=== PATIENT | female | born 1970 | race Caucasian/White ===

== ENCOUNTER → 2017-11-20 | Outpatient (CLI) | payer MEDICARE ==
--- NOTE | 2017-11-21 19:42 | ECHOF ---
Referral Reason:R01.1 Cardiac Murmur MEASUREMENTS -------- HEIGHT: 157.5 cm WEIGHT: 104.3 kg BP: 199/95 RVIDd: 3.2 cm (< 3.3) IVSd: 1.1 cm (0.6 - 1.1) LVIDd: 4.8 cm (3.9 - 5.3) LVPWd: 1.0 cm (0.6 - 1.1) IVSs: 1.5 cm LVIDs: 3.5 cm LVPWs: 1.4 cm LA Diam: 3.6 cm (2.7 - 3.8) LAESV Index (A-L): 19.32 ml/m Ao Diam: 3.1 cm (2.0 - 3.7) AV Cusp: 2.3 cm (1.5 - 2.6) MV EXCURSION: 16.399 mm (> 18.000) MV EF SLOPE: 127 mm/s (70 - 150) EPSS: 0.3 cm MV E Magno: 0.97 m/s MV DecT: 188 ms MV A Magno: 0.91 m/s MV E/A Ratio: 1.06 AV maxP.08 mmHg AV meanP.21 mmHg FINDINGS -------- Sinus rhythm. This was a technically good study. The left ventricular size is normal. There is borderline concentric left ventricular hypertrophy. Overall left ventricular systolic function is normal with, an EF between 60 - 65 %. The right ventricle is normal in size. Normal LA size by volume 22+/-6 ml/m2. The right atrium is normal in size. The aortic valve is trileaflet and appears structurally normal. Peak/mean gradient across the Aorti c Valve is 14.08mmHg / 6.21mmHg. The mitral valve is normal. The tricuspid valve appears structurally normal. There is no pulmonic regurgitation present. The aortic root size is normal. Normal inferior vena cava with normal inspiratory collapse consistent with estimated right atrial pre ssure of 5 mmHg. There is no pericardial effusion. CONCLUSIONS -------- 1. Sinus rhythm. 2. This was a technically good study. 3. The left ventricular size is normal. 4. There is borderline concentric left ventricular hypertrophy. 5. Overall left ventricular systolic function is normal with, an EF between 60 - 65 %. 6. The right ventricle is normal in size. 7. Normal LA size by volume 22+/-6 ml/m2. 8. The right atrium is normal in size. 9. The aortic valve is trileaflet and appears structurally normal. 10. Peak/mean gradient across the Aortic Valve is 14.08mmHg / 6.21mmHg. 11. The mitral valve is normal. 12. The tricuspid valve appears structurally normal. 13. There is no pulmonic regurgitation present. 14. The aortic root size is normal. 15. Normal inferior vena cava with normal inspiratory collapse consistent with estimated right atrial pressure of 5 mmHg. 16. There is no pericardial effusion. METAL PLATER: Lacey Argueta RDCS
== END | disposition home or self-care (01) ==
LOC: RADECHMAIN 14:47
PROVIDERS: ATTEND Family Medicine
DX: I51.7 Cardiomegaly (principal); R01.1 Cardiac murmur, unspecified
CPT/HCPCS: 93306

== ENCOUNTER 2018-07-15 07:44 | Day surgery (SDC) | payer MEDICARE ==
[2018-07-13 15:18] VITALS: BMI 45.7
[~2018-07-15 07:44] MED LIST: DEXAMETHASONE SOD PHOSPHATE 10 MG/ML 1 ML VIAL IV ONE; LACTATED RINGERS 1,000 ML IV SCH; ONDANSETRON 4 MG/2 ML VIAL IVP ONE; Pre Op ABX Message 1 EACH MISC MISCELLANE ONE; SCOPOLAMINE 1.5MG/72HR PATCH TRANSDERM ONE
--- NOTE | 2018-07-15 08:18 | P.HPOR ---
History of Present Illness H&P Date: 07/15/18 The patient is a very pleasant 48-year-old female who previously underwent open reduction and internal fixation of an ankle fracture by one of my partners. She has gone on to develop symptomatically hardware and anterior ankle pain. We discussed continued nonsurgical treatment with bracing, anti-inflammatory pain medications, and occasional cortisone injections versus surgery with a hardware removal and ankle arthroscopy. The patient elected to go forward with surgery. Past Medical History Past Medical History: Asthma, GERD/Reflux, Hyperlipidemia Additional Past Medical History / Comment(s): MIGRAINES, BRONCHIAL ASTHMA, IBS WITH D., PAIN LEFT ANKLE- STATES SHE HAS SCREW FROM PREVIOUS SURGERY. History of Any Multi-Drug Resistant Organisms: None Reported Past Surgical History: Cholecystectomy, Orthopedic Surgery Additional Past Surgical History / Comment(s): SURGERY LEFT ANKLE WITH HARDWARE AND THEN HARDWARE WAS REMOVED EXCEPT FOR 1 SCREW., SINUS SURGERY Past Anesthesia/Blood Transfusion Reactions: No Reported Reaction, Motion Sickness Additional Past Anesthesia/Blood Transfusion Reaction / Comment(s): mother-ponv Past Psychological History: Anxiety, Bipolar, Depression, Panic Disorder Smoking Status: Former smoker Past Alcohol Use History: Rare Additional Past Alcohol Use History / Comment(s): QUIT SMOKING 7-8 YEARS AGO ( 2010), SMOKED 1-2 PPD. STARTED SMOKING TEENAGER. Past Drug Use History: None Reported - Past Family History Father Family Medical History: Cancer Additional Family Medical History / Comment(s): prostate Sister(s) Family Medical History: Cancer Additional Family Medical History / Comment(s): (2) half sisters had lung cancer Brother(s) Family Medical History: Cancer Additional Family Medical History / Comment(s): thyroid cancer Medications and Allergies Home Medications Medication Instructions Recorded Confirmed Type Aspirin 81 mg PO DAILY 06/12/15 07/13/18 History Gabapentin [Neurontin] 2 tab PO BID 06/12/15 07/13/18 History Rosuvastatin [Crestor] 10 mg PO HS 06/12/15 07/13/18 History buPROPion HCL [Wellbutrin XL] 300 mg PO DAILY 06/12/15 07/13/18 History ALPRAZolam [Xanax] 0.5 mg PO TID PRN 07/13/18 07/13/18 History ARIPiprazole [Abilify] 20 mg PO DAILY 07/13/18 07/13/18 History Albuterol Inhaler [Ventolin Hfa 1 - 2 puff INHALATION QID 07/13/18 07/13/18 History Inhaler] Black Cohosh 540 mg PO BID 07/13/18 07/13/18 History Cholecalciferol [Vitamin D3] 5,000 unit PO DAILY 07/13/18 07/13/18 History Dicyclomine [Bentyl] 20 mg PO QID 07/13/18 07/13/18 History Diphenoxylate HCl/Atropine 2 tab PO QID 07/13/18 07/13/18 History [Lomotil 2.5-0.025 mg Tablet] Esomeprazole Magnesium [NexIUM] 40 mg PO HS 07/13/18 07/13/18 History Krill/[place]-3/Dha/Epa/Lipids 1 each PO DAILY 07/13/18 07/13/18 History [Krill Oil 350 mg Softgel] Sucralfate [Carafate] 1 gm PO ACHS 07/13/18 07/13/18 History lamoTRIgine 200 mg PO DAILY 07/13/18 07/13/18 History traZODone HCL 100 mg PO HS MDD 200mg 07/13/18 07/13/18 History Allergies Allergy/AdvReac Type Severity Reaction Status Date / Time No Known Allergies Allergy Verified 07/13/18 14:24 Physical Examination The patient is in no apparent distress and is alert and oriented. She demonstrates nonlabored breathing symmetric chest expansion. A focused examination was conducted on the affected ankle. There is a healed stab incision over the anterolateral aspect of the ankle. There is no surrounding erythema or warmth. There is mild tenderness over the anterior aspect of the ankle. There is pain with passive dorsiflexion of the ankle. Motor and sensory function are intact. Assessment and Plan (1) Fixation hardware in leg Current Visit: Yes Status: Acute Code(s): Z96.7 - PRESENCE OF OTHER BONE AND TENDON IMPLANTS SNOMED Code(s): 396258451 Plan: I lengthy discussion with the patient on treatment options including continued nonsurgical care with activity modification, bracing, anti-inflammatory pain medications and occasional injections versus surgery with a hardware removal and ankle arthroscopy. Since the patient is failed over 1 year of nonsurgical treatment she has requested to go forward with surgery. My proposed surgery was to remove the hardware and perform an ankle arthroscopy. The patient understands the potential for continued symptoms due to diffuse arthritis. She also understands the potential for worsening pain, infection, delayed wound healing, damage to local sensory nerves, EVT, PE, and possibly generalized to satisfaction with surgery. She provided her verbal and written consent to go forward with surgery. Time with Patient: Less than 30
[2018-07-15 08:51] VITALS: TEMP 97.5
[2018-07-15] MEDS ORDERED: LIDOCAINE 1% 20 ML VIAL (10MG/ML) FOR IV START INTRADERMA ONE (09:09)
[2018-07-15] MEDS ORDERED: PROPOFOL 10 MG/ML 20 ML VIAL IV ONE (11:39)
[2018-07-15] MEDS ORDERED: MIDAZOLAM 2 MG/2 ML VIAL ONE (11:39)
[2018-07-15] MEDS ORDERED: LIDOCAINE 1% INJ 10MG/ML (20 ML MDV) ONE (11:39)
[2018-07-15] MEDS ORDERED: fentaNYL (PF) 50 MCG/ML 2 ML AMP ONE (11:39)
[2018-07-15] MEDS ORDERED: SUCCINYLCHOLINE CHLORIDE 100 MG/5 ML SYR IV ONE (11:39)
[2018-07-15] MEDS ORDERED: HYDROmorphone 1 MG/ML 1 ML SYRINGE IVP PRN (11:47)
[2018-07-15] MEDS ORDERED: HYDROcodone/APAP 5-325MG 1 EACH TAB PO PRN ×2 (11:47)
[2018-07-15] MEDS ORDERED: LACTATED RINGERS 1,000 ML IV SCH (12:00)
[2018-07-15] MEDS ORDERED: SODIUM CHLORIDE 0.9% 50 ML with ceFAZolin 2,000 MG IV ONE ×2 (12:05)
[2018-07-15] MEDS ORDERED: ROPIVACAINE 5 MG/ML 30 ML VIAL MISCELLANE ONE ×2 (12:22)
[2018-07-15] MEDS ORDERED: LACTATED RINGERS 1,000 ML IV ONE (13:07)
--- NOTE | 2018-07-15 13:21 | XR ---
EXAMINATION TYPE: XR ankle limited LT DATE OF EXAM: 07/15/2018 COMPARISON: NONE HISTORY: Hardware removal TECHNIQUE: 2 views submitted FINDINGS: No metallic hardware identified on the T2 images submitted. Resolution limited by intraoper ative image. IMPRESSION: Intraoperative hardware removal.
--- NOTE | 2018-07-15 13:24 | FL ---
Fluoroscopy History: HARDWARE REMOVAL LT FOOT. 7 SECS FL TIME 2 IMAGES.
--- NOTE | 2018-07-15 13:39 | P.OP ---
Date of Procedure: 07/15/18 Preoperative Diagnosis: 1. Symptomatically hardware left ankle 2. Anterior ankle impingement, left ankle 3. Posttraumatic ankle arthritis, left ankle Postoperative Diagnosis: Same Procedure(s) Performed: 1. Left ankle arthroscopy with extensive debridement and arthroscopic cheilectomy 2. Removal of hardware, deep left ankle Anesthesia: BRITTNEY Surgeon: Be Galloway Fine Dining Server #1: Abdi Travis Estimated Blood Loss (ml): 5 IV fluids (ml): 500 Pathology: none sent Condition: stable Disposition: PACU Indications for Procedure: The patient is very pleasant previous a healthy 48 year old female who sustained a left ankle fracture in the remote past that was fixed by Dr. Garrison. She healed her fracture but has gone on to develop diffuse ankle pain. She was initially treated nonsurgically with an ankle brace and cortisone injection. She transiently responded following her cortisone injection. She came back to see me recently and requested surgical intervention. We discussed removing the hardware from the ankle and performing an arthroscopy. The patient agreed to go forward with this. We discussed the potential risks and complications of surgery including but not limited to risk of anesthesia, superficial infection, deep infection, delayed wound healing, damage to local sensory nerves, draining fistula. Arthroscopy portals, worsening pain, ongoing pain, inability to regain preinjury level of function, DVT, PE, need for further surgery, and possibly loss of life or limb. The patient voiced her understanding of the potential for continued pain especially if she has posterior medical arthritis. She understands that in many cases an arthroscopy is a diagnostic procedure, but hopefully she will get some therapeutic relief. She provided her verbal and written consent to go forward with surgery. Description of Procedure: The patient is in proper holding the correct left ankle was marked with my initials. I reviewed the consent form with the patient and her mom. All of her questions were answered. The patient was then brought back to the operating room by anesthesia. She was positioned on the OR table where a general anesthetic and preoperative antibiotics were administered. A tourniquet was applied the proximal aspect the left thigh. A well leg alcala was placed under the leg to facilitate traction with gravity for arthroscopy. The contralateral leg was secured to the table with foam and tape. The left leg was then prepped and draped in the standard sterile fashion. A timeout was performed identifying the correct patient, operative extremity, and procedure. The leg was then elevated, exsanguinated with an Esmarch bandage, and the tourniquet was inflated to 250 mmHg. I began by marking out standard anteromedial and anterolateral arthroscopy portals with a skin marker. An 18-gauge spinal needle was used through the medial portal to insufflate the joint with 10 mL's of sterile saline. An 11 blade scalpel was then used to create a stab incision through the skin only and a mosquito hemostat was used to bluntly dissect down to the ankle joint. A blunt probe and obturator were inserted into the joint followed by a 2.7 mm 30 arthroscope. The anterolateral portal was created with a stab incision followed by blunt dissection down to the joint. A probe was placed through the anterolateral portal. On inspection the joint there was diffuse synovitis in the anterior recess of the ankle. The probe was removed and an arthroscopic shaver was introduced and an extensive synovectomy was performed along a recess in the anterior aspect of the ankle for visualization. The shaver was then removed and the probe was reinserted into the ankle joint. A diagnostic arthroscopy was then performed. There was mild fraying diffusely throughout the talar dome but no william osteochondral lesions. The cartilage was largely intact and the visualized portion of the tibial plafond. There was synovitis in the medial and lateral gutter of the ankle but no loose bodies or areas of impingement. There was an osteophyte off of the anterior central aspect of the tibia. An arthroscopic bur was used to shave the osteophyte. The ankle was then brought through a range of motion and there did not appear to be any areas of impingement. The arthroscope and shaver were removed and the portals were closed with 3-0 nylon. A stab incision was then made over the scar from her screw. Dissection was carried down bluntly to the screw and a K wire was placed through the cannulated screw. A large fragment cannulated screwdriver was placed over the K wire but the screw was stripped. Dissection was carried down to the screw and inspection screw head was moderately stripped. I was able to carefully get the screw started with a screwdriver and then used a pliers to remove the screw by hand. Final fluoroscopic images were taken. The wound was copiously irrigated and closed with a 3-0 nylon. A sterile dressing consisting of Adaptic , 4 x 4, and web rolls applied. The tourniquet was let down. An Sravan wrap was placed over the leg. The drapes were removed, the patient was awoken from her anesthetic, and she was transferred to PACU without the procedure well.
[2018-07-15 13:48] VITALS: RESP 16
[2018-07-15] MEDS: HYDROmorphone 0.5 MG/0.5 ML SYRINGE IVP PRN ×2 (13:55→14:09)
[2018-07-15 15:45] VITALS: BP 120/70; PULSE 80
== END 2018-07-15 16:09 | disposition home or self-care (01) ==
LOC: OR 07:44
PROVIDERS: ATTEND Orthopaedic Surgery
DX: T84.84XA Pain due to internal orthopedic prosthetic devices, implants and grafts, initial encounter (principal); M19.172 Post-traumatic osteoarthritis, left ankle and foot; S82.892S Other fracture of left lower leg, sequela; X58.XXXS Exposure to other specified factors, sequela; M25.872 Other specified joint disorders, left ankle and foot; M65.872 Other synovitis and tenosynovitis, left ankle and foot; M25.772 Osteophyte, left ankle; M76.822 Posterior tibial tendinitis, left leg; M72.2 Plantar fascial fibromatosis; K21.9 Gastro-esophageal reflux disease without esophagitis; K58.0 Irritable bowel syndrome with diarrhea; J45.20 Mild intermittent asthma, uncomplicated; E78.5 Hyperlipidemia, unspecified; L98.9 Disorder of the skin and subcutaneous tissue, unspecified; F31.9 Bipolar disorder, unspecified; F41.1 Generalized anxiety disorder; F41.0 Panic disorder [episodic paroxysmal anxiety]; G43.909 Migraine, unspecified, not intractable, without status migrainosus; R63.4 Abnormal weight loss; E66.9 Obesity, unspecified; Z68.42 Body mass index [BMI] 45.0-49.9, adult; Z79.82 Long term (current) use of aspirin; Z79.899 Other long term (current) drug therapy; Z79.891 Long term (current) use of opiate analgesic; Z87.891 Personal history of nicotine dependence; Z90.49 Acquired absence of other specified parts of digestive tract
CPT/HCPCS: 73600; 29898; 20680; J2250; J1100; J2405; J2001; J3010; J0690; J2795; J0330; J2704; J1170

== ENCOUNTER 2019-05-28 10:11 | Day surgery (SDC) | payer MEDICARE ==
[2019-05-27 09:14] VITALS: BMI 45.7
[~2019-05-28 10:11] MED LIST changes: +LIDOCAINE 1% 20 ML VIAL (10MG/ML) FOR IV START INTRADERMA PRN; -ONDANSETRON 4 MG/2 ML VIAL IVP ONE; -Pre Op ABX Message 1 EACH MISC MISCELLANE ONE
[2019-05-28 10:23] VITALS: TEMP 98.2
[2019-05-28] MEDS ORDERED: KETAMINE 10 MG/ML 20 ML VIAL ONE (10:58)
[2019-05-28] MEDS ORDERED: MIDAZOLAM 2 MG/2 ML VIAL ONE (10:58)
[2019-05-28] MEDS ORDERED: LIDOCAINE 1% INJ 10MG/ML (20 ML MDV) ONE (10:58)
[2019-05-28] MEDS ORDERED: PROPOFOL 10 MG/ML 20 ML VIAL IV ONE (10:58)
[2019-05-28] MEDS ORDERED: GLYCOPYRROLATE 0.2 MG/ML 2 ML VIAL ONE (10:58)
--- NOTE | 2019-05-28 11:27 | P.PCN ---
Date of Procedure: 05/28/19 Procedure(s) Performed: BRIEF HISTORY: Patient is a 49-year-old, pleasant, white female, scheduled for an upper endoscopy as a part of evaluation of intermittent dysphagia to solids for the last few months duration. She also has long-standing history of GERD and has been on Nexium 40 mg daily for several years. Because of the dysphagia to solids she is scheduled for an upper endoscopy to evaluate further.. PROCEDURE PERFORMED: Esophagogastroduodenoscopy with biopsy. PREOPERATIVE DIAGNOSIS: Long-standing history of GERD/intermittent dysphagia to solids. IV sedation per anesthesia. PROCEDURE: After informed consent was obtained, the patient was brought into the endoscopy unit. IV sedation was administered by Anesthesia under continuous monitoring. Initially the Olympus GIF-140 video endoscope was inserted into the mouth. Esophagus intubated without any difficulty. It was gradually advanced into the stomach and duodenum and carefully examined. The bulb and the second part of the duodenum appeared normal. The scope at this time was withdrawn to the stomach, adequately insufflated with air, and upon careful examination, mucosa of the antrum, had antral gastritis and biopsies were done from this area. The body, cardia and the fundus appeared normal. The scope was then withdrawn into the esophagus. The GE junction was located at 39 cm from the incisors. The esophagus appeared normal. There were no erosions or ulcerations seen . There was no evidence of esophageal stricture. Multiple biopsies were done from the mid and distal esophagus to rule out eosinophilic esophagitis and the patient tolerated the procedure well. IMPRESSION: 1. No evidence of esophagitis or esophageal stricture. 2. Mild antral gastritis. RECOMMENDATIONS: The findings of this examination were discussed with the patient as well as her family. She was advised to continue with Nexium 40 mg daily and follow antireflux measures. She will follow with the biopsy results..
[2019-05-28 11:30] VITALS: BP 108/64; PULSE 89; RESP 16
== END 2019-05-28 11:42 | disposition home or self-care (01) ==
LOC: ORWHC2ENDO 10:11
PROVIDERS: ATTEND Internal Medicine Gastroenterology
DX: K29.50 Unspecified chronic gastritis without bleeding (principal); K21.9 Gastro-esophageal reflux disease without esophagitis; E78.5 Hyperlipidemia, unspecified; J45.909 Unspecified asthma, uncomplicated; Z87.891 Personal history of nicotine dependence; F41.9 Anxiety disorder, unspecified; G43.909 Migraine, unspecified, not intractable, without status migrainosus; F31.9 Bipolar disorder, unspecified; Z79.82 Long term (current) use of aspirin; Z79.899 Other long term (current) drug therapy; K58.9 Irritable bowel syndrome, unspecified
CPT/HCPCS: 88305; 43239; J2250; J2001; J2704

== ENCOUNTER → 2019-10-05 | Outpatient (CLI) | payer MEDICARE ==
--- NOTE | 2019-10-05 08:44 | US ---
EXAMINATION TYPE: US abdomen complete DATE OF EXAM: 10/05/2019 COMPARISON: US 2009 CLINICAL HISTORY: R10.9 ABDOMINAL PAIN. Pt states abnormal LFT's, GB removed EXAM MEASUREMENTS: Liver Length: 16.9 cm CBD: 1.2 cm Spleen: 11.7 cm Right Kidney: 11.0 x 5.0 x 5.1 cm Left Kidney: 12.7 x 5.3 x 4.5 cm Pancreas: wnl, tail obscured by overlying bowel gas Liver: Heterogeneous with possible fatty sparing near jessica Gallbladder: Surgically absent Evidence for sonographic Fuller's sign: No CBD: Dilated for post bolivar Spleen: wnl Right Kidney: Lobulated contour Left Kidney: Column of Osito Upper IVC: wnl Abd Aorta: wnl The intrahepatic portion of the IVC and proximal abdominal aorta are within normal limits. There is no evidence of cholelithiasis. Common bile duct is unremarkable. The visualized portions of the edward creas are homogenous. The spleen is unremarkable. Kidneys are symmetric and free of hydronephrosis. No renal lesions are seen. IMPRESSION: 1. Mild heterogeneity of the hepatic parenchyma most commonly related to hepatic steatosis. Focal are a of hypoechogenicity. Geographic is seen near the jessica hepatis, a typical location for focal fatty sparing. 2. Common bile duct size is dilated for postcholecystectomy status. Distal stricture is possible as t here is tapering of the pancreatic head or obstructing stone. MRCP could be performed for further woo luation.
== END | disposition home or self-care (01) ==
LOC: RADUSWWP 07:27
PROVIDERS: ATTEND Family Medicine
DX: R93.2 Abnormal findings on diagnostic imaging of liver and biliary tract (principal); Z90.49 Acquired absence of other specified parts of digestive tract
CPT/HCPCS: 76700

== ENCOUNTER → 2019-10-29 | Outpatient (CLI) | payer MEDICARE ==
--- NOTE | 2019-11-01 13:07 | MM ---
Reason for exam: screening (asymptomatic). Last mammogram was performed 11 years and 8 months ago. History: Patient is postmenopausal and is nulliparous. Family history of breast cancer in aunt. Physical Findings: A clinical breast exam by your physician is recommended on an annual basis and results should be correlated with mammographic findings. MG 3D Screening Mammo W/Cad Bilateral CC and MLO view(s) were taken. Prior study comparison: March 09, 2008, bilateral digital screening mammogram. The breast tissue is heterogeneously dense. This may lower the sensitivity of mammography. There is no discrete abnormality. No significant changes when compared with prior studies. ASSESSMENT: Negative, BI-RAD 1 RECOMMENDATION: Routine screening mammogram of both breasts in 1 year.
== END | disposition home or self-care (01) ==
LOC: RADMAMWWP 14:37
PROVIDERS: ATTEND Family Medicine
DX: Z12.31 Encounter for screening mammogram for malignant neoplasm of breast (principal)
CPT/HCPCS: 77063; 77067

== ENCOUNTER → 2020-11-17 | Outpatient (CLI) | payer MEDICARE ==
--- NOTE | 2020-11-17 11:07 | US ---
EXAMINATION TYPE: US abdomen comp/pelvis limited DATE OF EXAM: 11/17/2020 COMPARISON: 10/05/2019 CLINICAL HISTORY: 50-year-old female R31.29 Micro hematuria. Microscopic hematuria x couple months, h istory of cholecystectomy Technique: Multiple sonographic images of the abdomen and bladder are obtained. FINDINGS: EXAM MEASUREMENTS: Liver Length: 20.9 cm CBD: 1.3 cm Spleen: 10.9 cm Right Kidney: 11.5 x 5.4 x 5.0 cm Left Kidney: 12.6 x 5.2 x 5.1 cm Recruiting Manager notes:Difficult and limited study due to patient body habitus Pancreas: Only portions of the pancreatic head and neck are seen. Remainder suboptimally visualized due to shadowing from bowel gas. Liver: Enlarged, echogenic, and attenuating with some focal fatty sparing at the portahepatis. Gallbladder: surgically absent CBD: dilated Spleen: wnl Kidneys: No hydronephrosis. Upper IVC: wnl Abd Aorta: wnl Bladder: No gross abnormality. Bilateral Jets Seen yes IMPRESSION: 1. No hydronephrosis. Both ureteral jets are visualized. No gross sonographic abnormality of the blad mel. 2. Dilated bile duct at 1.3 cm may be secondary to chronic postcholecystectomy status. Correlate for normal alkaline phosphatase and bilirubin levels. 3. Hepatomegaly (20.9 cm) with at least moderate hepatic steatosis.
== END | disposition home or self-care (01) ==
LOC: RADUSWWP 08:47
PROVIDERS: ATTEND Family Medicine
DX: K83.8 Other specified diseases of biliary tract (principal); K76.0 Fatty (change of) liver, not elsewhere classified; R16.0 Hepatomegaly, not elsewhere classified
CPT/HCPCS: 76700; 76857

== ENCOUNTER → 2021-01-04 | Outpatient (CLI) | payer MEDICARE ==
--- NOTE | 2021-01-05 09:23 | MM ---
Reason for exam: screening (asymptomatic). Last mammogram was performed 1 year and 2 months ago. History: Patient is postmenopausal and is nulliparous. Family history of breast cancer in aunt. Physical Findings: A clinical breast exam by your physician is recommended on an annual basis and results should be correlated with mammographic findings. MG 3D Screening Mammo W/Cad Bilateral CC and MLO view(s) were taken. Prior study comparison: October 29, 2019, bilateral MG 3d screening mammo w/cad. March 09, 2008, bilateral digital screening mammogram. There are scattered fibroglandular densities. Stable benign calcifications. There is no discrete abnormality. No significant changes when compared with prior studies. ASSESSMENT: Benign, BI-RAD 2 RECOMMENDATION: Routine screening mammogram of both breasts in 1 year.
== END | disposition home or self-care (01) ==
LOC: RADMAMWWP 13:32
PROVIDERS: ATTEND Family Medicine
DX: Z12.31 Encounter for screening mammogram for malignant neoplasm of breast (principal); Z78.0 Asymptomatic menopausal state; Z80.3 Family history of malignant neoplasm of breast
CPT/HCPCS: 77063; 77067

== ENCOUNTER 2021-01-19 07:17 | Day surgery (SDC) | payer MEDICARE, OTHER ==
[2021-01-16 11:41] VITALS: BMI 48.4
[~2021-01-19 07:17] MED LIST changes: -DEXAMETHASONE SOD PHOSPHATE 10 MG/ML 1 ML VIAL IV ONE; +DEXAMETHASONE SOD PHOSPHATE 4 MG/ML 1 ML VIAL IV ONE; +HYDROmorphone 0.5 MG/0.5 ML SYRINGE IVP PRN; +LIDOCAINE 1% (10MG/ML) FOR IV START INTRADERMA PRN; -LIDOCAINE 1% 20 ML VIAL (10MG/ML) FOR IV START INTRADERMA PRN; +MIDAZOLAM 2 MG/2 ML VIAL IV PRN; +ONDANSETRON 4 MG/2 ML VIAL IVP ONE; -SCOPOLAMINE 1.5MG/72HR PATCH TRANSDERM ONE
[2021-01-19 07:43] VITALS: TEMP 97.4
[2021-01-19] MEDS ORDERED: SCOPOLAMINE 1.5MG/72HR PATCH TRANSDERM ONE (08:01)
[2021-01-19 08:04] LABS: Glucose,Whole Blood 112 mg/dL (75-99)
[2021-01-19] MEDS ORDERED: MIDAZOLAM 2 MG/2 ML VIAL IVP ONE (08:06)
--- NOTE | 2021-01-19 09:28 | P.OP ---
Date of Procedure: 01/19/21 Preoperative Diagnosis: Chronic right ankle instability Postoperative Diagnosis: Same Procedure(s) Performed: Secondary repair of right lateral ankle ligaments Implants: 1 Arthrex internal brace, 2 Arthrex fiber Agapito anchors Anesthesia: BRITTNEY Surgeon: Aldair Aleman Estimated Blood Loss (ml): 5 Pathology: none sent Condition: stable Disposition: PACU Indications for Procedure: Chronic right ankle instability with pain Description of Procedure: Dry to the patient being brought to the operating room anesthesia administered a popliteal nerve block of the right lower extremity. The patient was then brought into the operative room placed on table supine position. Timeout was taken to confirm correct patient identifiers correct site of surgery and correct procedure. When the room was in agreement the patient was then intubated placed under general anesthetic. A wedge was placed underneath the right hip to internally rotate the right leg. A tourniquet was placed on the right midcalf keeping 3-4 inches distal to the fibular neck. Then the right leg was prepped and draped usual manner. Attention was directed over the anterior lateral ankle were curved incision was made just anterior to lateral malleolus. This deepened down through the subcutaneous tissue down to level the joint capsule careful to identify, avoid, and retract any neurovascular structures and cauterize any bleeding vessels. The capsule was incised off the anterior surface of the lateral malleolus and reflected anteriorly. Hakan was used to remove the cortical bone off the anterior surface the lateral malleolus. All roughened edges were smoothed with a rasp. With the ankle held in neutral position the capsules palpated over the lateral surface of the talus just anterior to the joint surface and at the junction of the neck. A small stab incision was made through the capsule and 3.4 mm drill bit was used to create the drill hole in the talus utilizing described technique. The hole was tapped and then the anchor inserted and advanced to proper depth. The hand picker was removed and the suture set aside. The same drill bit was then used to create the drill hole for the second portion of the internal brace in the lateral malleolus. Drill holes for the fiber Agapito anchors were made in the lateral malleolus one inferior one superior to 3.4 mm drill hole. The fiber Agapito anchors were inserted and impacted to proper depth. the hand picker drill guides were removed and tension placed on the suture for lock the knot in place. The wound is irrigated with antibiotic saline. The fiber Agapito suture was then used to sew the distal capsular and ligament structures and a tightened fashion back to the anterior surface lateral malleolus all the ankle maxillae dorsiflexed and everted. Same sutures then used to oversew the periosteal flap pants over vest fashion on the repair site. The 2 arms of the internal brace suture were then placed through the 3.5 mm anchor which was then aligned with the drill hole in the lateral malleolus. P jody tensioning techniques were utilized to then the anchor was advanced locking the suture in place. Ankle was tested for range of motion and stability, where anterior drawer and inversion stress are negative. The wound is irrigated with antibiotic saline. Subcu closure done for Monocryl. Skin closure done with 40 stratified effects in a running subarticular manner. Dermabond glue and Steri-Strips are applied then a jumpstart dressing and a dry sterile dressings applied the right ankle. Tourniquet was released capillary refill return to all digits on the right foot. Patient placed in a below-knee fracture boot ankle neutral position. Anesthesia was reversed and the patient was taken recovery with vital signs stable.
[2021-01-19] MEDS ORDERED: LACTATED RINGERS 1,000 ML IV ONE (10:09)
[2021-01-19] MEDS ORDERED: HYDROcodone/APAP 7.5-325MG 1 EACH TAB ONE (10:44)
[2021-01-19] MEDS ORDERED: HYDROcodone/APAP 7.5-325MG 1 EACH TAB PO ONE (10:45)
[2021-01-19 11:35] VITALS: BP 137/78; PULSE 78; RESP 18
--- NOTE | 2021-01-21 18:42 | P.ANPRN ---
Procedure Note - Anesthesia - Nerve Block Performed Right Popliteal Single Time Out Performed: Yes Date of Procedure: 01/19/21 Procedure Start Time: 08:05 Procedure Stop Time: 08:13 Location of Patient: PreOp Indication: Acute Post-Operative Pain, Requested by Surgeon Sedation Type: Sedate with meaningful contact maintained Preparation: Sterile Prep Position: Left Lateral Needle Types: Pajunk Needle Gauge: 21 Ultrasound used to visualize needle placement: Yes Ultrasound used to observe medication spread: Yes Blood Aspirated: No Pain Paresthesia on Injection Noted: No Resistance on Injection: Normal Image Stored and Saved: Yes Events: Uneventful and Well Tolerated (Ropivacaine 0.5% 30 mL plus dexamethasone 4 mg)
== END 2021-01-19 11:36 | disposition home or self-care (01) ==
LOC: OR 07:17
PROVIDERS: ATTEND Podiatrist
DX: M25.371 Other instability, right ankle (principal); E78.5 Hyperlipidemia, unspecified; F32.9 Major depressive disorder, single episode, unspecified; I10 Essential (primary) hypertension; J45.909 Unspecified asthma, uncomplicated; G47.33 Obstructive sleep apnea (adult) (pediatric); R45.0 Nervousness; K21.9 Gastro-esophageal reflux disease without esophagitis; Z98.890 Other specified postprocedural states; Z98.42 Cataract extraction status, left eye; Z98.41 Cataract extraction status, right eye; Z97.3 Presence of spectacles and contact lenses; Z82.49 Family history of ischemic heart disease and other diseases of the circulatory system; Z87.891 Personal history of nicotine dependence; Z90.49 Acquired absence of other specified parts of digestive tract
CPT/HCPCS: 64445; 76942; 27698; C1713 ×2; J2250; J1100; J0690; J2405

== ENCOUNTER 2021-07-24 10:13 | Outpatient (CLI) | payer MEDICARE, OTHER ==
[~2021-07-24 10:13] MED LIST changes: +BAMLANIVIMAB (EUA) 700 MG, ETESEVIMAB (EUA) 1,400 MG in SODIUM CHLORIDE 0.9% 50 ML IVPB ONE; -DEXAMETHASONE SOD PHOSPHATE 4 MG/ML 1 ML VIAL IV ONE; -HYDROmorphone 0.5 MG/0.5 ML SYRINGE IVP PRN; -LACTATED RINGERS 1,000 ML IV SCH; -LIDOCAINE 1% (10MG/ML) FOR IV START INTRADERMA PRN; -MIDAZOLAM 2 MG/2 ML VIAL IV PRN; -ONDANSETRON 4 MG/2 ML VIAL IVP ONE; +SODIUM CHLORIDE 0.9% 50 ML IVPB ONE; +SODIUM CHLORIDE 0.9% 500 ML 500 ML in EMPTY BAG 1 BAG IV PRN
[2021-07-24 11:31] VITALS: BP 133/81; PULSE 95; RESP 22; TEMP 100.2
== END 2021-07-24 12:20 ==
LOC: PROCWHC3 10:13
PROVIDERS: ATTEND Family Medicine
DX: U07.1 COVID-19 (principal); E66.9 Obesity, unspecified; Z68.42 Body mass index [BMI] 45.0-49.9, adult; Z87.891 Personal history of nicotine dependence
CPT/HCPCS: 96360; J3490; M0243

== ENCOUNTER → 2021-09-20 | Outpatient (CLI) | payer MEDICARE ==
--- NOTE | 2021-09-22 12:59 | ECHOF ---
Referral Reason:U07.1 covid 19 MEASUREMENTS -------- HEIGHT: 157.5 cm WEIGHT: 120.2 kg BP: IVSd: 0.9 cm (0.6 - 1.1) LVIDd: 4.6 cm (3.9 - 5.3) LVPWd: 1.2 cm (0.6 - 1.1) EDV(Teich): 95 ml IVSs: 1.8 cm LVIDs: 3.4 cm LVPWs: 1.4 cm %IVS Thck: 100 % ESV(Teich): 47 ml EF(Teich): 51 % %FS: 26 % SV(Teich): 48 ml RVIDd: 2.8 cm (< 3.3) IVC: 14.80 mm LALs A4C: 4.6 cm LAAs A4C: 15.9 cm LAESV A-L A4C: 47 ml LAESV MOD A4C: 45 ml LALs A2C: 4.6 cm LAAs A2C: 15.3 cm LAESV A-L A2C: 43 ml LAESV MOD A2C: 42 ml LAESV(A-L): 46 ml LAESV Index (A-L): 21.07 ml/m MV E Magno: 0.80 m/s MV DecT: 197 ms MV Dec Goodhue: 4.1 m/s MV A Magno: 0.94 m/s MV E/A Ratio: 0.85 MV PHT: 57 ms MR Vmax: 1.47 m/s MR maxP.59 mmHg AV Vmax: 1.47 m/s AV maxP.59 mmHg TR Vmax: 1.45 m/s TR maxP.38 mmHg RAP: 5.00 mmHg RVSP: 13.38 mmHg FINDINGS -------- This was a technically good study. The left ventricular size is normal. Left ventricular wall thickness is normal. Overall left vent ricular systolic function is normal with, an EF between 55 - 60 %. The diastolic filling pattern is normal for the age of the patient 12.92. The right ventricle is normal in size. The left atrial size is normal. Normal LA size by volume 22+/-6 ml/m2. The right atrial size is normal. Interatrial and interventricular septum intact. The aortic valve is trileaflet and appears structurally normal. The mitral valve is normal. There is trace mitral regurgitation. The tricuspid valve appears structurally normal. Trace tricuspid regurgitation present. Right arben tricular systolic pressure is normal at < 35 mmHg. There is no pulmonic regurgitation present. The aortic root size is normal. Normal inferior vena cava with normal inspiratory collapse consistent with estimated right atrial pre ssure of 5 mmHg. There is no pericardial effusion. CONCLUSIONS -------- 1. The left ventricular size is normal. 2. Left ventricular wall thickness is normal. 3. Overall left ventricular systolic function is normal with, an EF between 55 - 60 %. 4. The diastolic filling pattern is normal for the age of the patient 12.92 5. There is trace mitral regurgitation. 6. Trace tricuspid regurgitation present. 7. There is no pericardial effusion. VISCERA WASHER: Gisele Paniagua RDCS
== END | disposition home or self-care (01) ==
LOC: RADECHMAIN 11:15
PROVIDERS: ATTEND Family Medicine
DX: U07.1 COVID-19 (principal); I08.1 Rheumatic disorders of both mitral and tricuspid valves
CPT/HCPCS: 93306

== ENCOUNTER → 2022-01-15 | Outpatient (CLI) | payer MEDICARE | LOC: CPPFTMAIN 08:55 | PROVIDERS: ATTEND Family Medicine | DX: U07.1 COVID-19 (principal); Z87.891 Personal history of nicotine dependence | CPT/HCPCS: 94060; 94726; 94729 ==

== ENCOUNTER → 2023-07-16 | Outpatient (CLI) | payer MEDICARE ==
--- NOTE | 2023-07-16 08:22 | MM ---
Reason for Exam: Screening (asymptomatic). Last mammogram was performed 2 year(s) and 7 month(s) ago. Patient History: Menarche at age 11. Patient has no children. Postmenopausal. Maternal aunt had breast cancer. Risk Values: Richa 5 year model risk: 1.3%. NCI Lifetime model risk: 10.5%. Prior Study Comparison: 03/09/2008 Bilateral Screening Mammogram, [facility]. 10/29/2019 Bilateral Screening Mammogram, [facility]. 01/04/2021 Bilateral Screening Mammogram, [facility]. Tissue Density: There are scattered fibroglandular densities. Findings: Analyzed By CAD. There is no suspicious group of microcalcifications or new suspicious mass in either breast. Benign calcifications within both breasts. Chronic nodularity within the left breast. Overall Assessment: Benign, BI-RAD 2 Management: Screening Mammogram of both breasts in 1 year. A clinical breast exam by your physician is recommended on an annual basis and results should be correlated with mammographic findings. Note on Richa scores and lifetime risk: 1. A Richa score greater than 3% is considered moderate risk. If this is the case, consider specialist referral to assess eligibility for a risk reducing agent. If overall lifetime risk for the development of breast cancer is 20% or higher, the patient may qualify for future screening with alternating mammogram and breast MRI. Electronically signed and approved by: Jamshid Davis D.O.
== END | disposition home or self-care (01) ==
LOC: RADMAMWWP 07:52
PROVIDERS: ATTEND Family Medicine
DX: Z12.31 Encounter for screening mammogram for malignant neoplasm of breast (principal); Z78.0 Asymptomatic menopausal state; Z80.3 Family history of malignant neoplasm of breast
CPT/HCPCS: 77063; 77067